=== PATIENT | male | born 1980 | race African-American/Black ===

== ENCOUNTER 2021-09-24 20:43 | Emergency (ER) | payer MEDICAID ==
[~2021-09-24] VITALS: Ht 188 cm; Wt 68.0 kg
[2021-09-24 21:26] VITALS: BP 141/100
[2021-09-25] MEDS ORDERED: ONDANSETRON HCL 4MG/2ML INJ IV STA (01:29)
[2021-09-25] MEDS ORDERED: MAGNESIUM/ALUMINUM HYDROXIDE/SIMETHICONE 30ML UDC PO STA (01:29)
[2021-09-25] MEDS ORDERED: FAMOTIDINE 20MG/2ML VIAL IV STA (01:29)
[2021-09-25] MEDS ORDERED: SODIUM CHLORIDE 0.9% 1,000 ML IV ONE (01:30)
[2021-09-25 02:38] LABS: BASOPHILS % 0.1 % (0.0-2.0); HEMATOCRIT. 40.1 % (42.0-52.0); HEMOGLOBIN. 13.2 g/dL (14.0-18.0); LYMPHOCYTES % 9.9 % (20.0-50.0); MEAN CORPUSCULAR HEMOGLOBIN 28.1 pg (28.0-32.0); MEAN CORPUSCULAR VOLUME 85.1 fL (80.0-94.0); MEAN PLATELET VOLUME 11.6 fl (7.4-10.4); MONOCYTES % 3.7 % (2.0-8.0); NEUTROPHILS % 86.3 % (40.0-76.0); PLATELET 187 x1000/uL (130-400); RED BLOOD CELL COUNT 4.71 mill/uL (4.7-6.1); RED CELL DISTRIBUTION WIDTH 13.1 % (11.6-14.6)
[2021-09-25 02:51] LABS: CHLORIDE 102 mEq/L (98-107)
[2021-09-25] MEDS ORDERED: ONDA4TAB5 MT (03:56)
[2021-09-25] MEDS ORDERED: FAMO-135 MT (03:56)
== END 2021-09-25 04:25 | disposition home or self-care (01) ==
LOC: ER 20:43
DX: K52.9 Noninfective gastroenteritis and colitis, unspecified (principal)
CPT/HCPCS: 36415; 80053; 83690; 85025; 96361; 96374; 96375; 99284; J2405; J3490; J7030

== ENCOUNTER 2022-02-06 20:04 | Emergency (ER) | payer OTHER, MEDICAID ==
[~2022-02-06] VITALS: Ht 188 cm; Wt 66.0 kg
[~2022-02-06 20:04] MED LIST: FAMO-135 MT; ONDA4TAB5 MT
[2022-02-07 00:58] VITALS: BP 111/71
[2022-02-07] MEDS ORDERED: IBUPROFEN 600MG TABLET PO STA (00:58)
[2022-02-07] MEDS ORDERED: DOCU100T PO (01:08)
[2022-02-07] MEDS ORDERED: NAPR-681 PO (01:08)
[2022-02-07] MEDS ORDERED: HYDR25SU37 RC (01:08)
[2022-02-07] MEDS ORDERED: POLY119P2 MT (01:08)
== END 2022-02-07 01:30 | disposition home or self-care (01) ==
LOC: ER 20:04 → EDBD 20:04 → ER 02-07 01:30
DX: K64.8 Other hemorrhoids (principal)
CPT/HCPCS: 99283

== ENCOUNTER 2022-02-17 04:04 | Emergency (ER) | payer OTHER, MEDICAID ==
[~2022-02-17] VITALS: Ht 177.8 cm; Wt 68.0 kg
[~2022-02-17 04:04] MED LIST changes: +DOCU100T PO; +HYDR25SU37 RC; +NAPR-681 PO; +POLY119P2 MT
[2022-02-17] MEDS ORDERED: HYDR-4001 MT (08:05)
[2022-02-17] MEDS ORDERED: DOCU-138 MT (08:05)
[2022-02-17] MEDS ORDERED: IMIQ1CRE22 TP (08:05)
[2022-02-17 08:25] VITALS: BP 120/77
== END 2022-02-17 08:25 | disposition home or self-care (01) ==
LOC: ER 04:31
DX: A63.0 Anogenital (venereal) warts (principal); Z79.899 Other long term (current) drug therapy
CPT/HCPCS: 99283